=== PATIENT | male | born 1995 | race Caucasian/White ===

== ENCOUNTER 2018-12-09 08:34 | Day surgery (SDC) | payer OTHER, SELFPAY ==
[2018-12-09] MEDS ORDERED: Piperacillin/Tazobactam 3.375 GM VIAL ONE (09:12)
[2018-12-09] MEDS ORDERED: Fentanyl 100 MCG/2 ML VIAL ONE ×2 (09:22→10:18)
[2018-12-09] MEDS ORDERED: Meperidine HCl/PF 25 MG/ML VIAL ONE (09:22)
[2018-12-09] MEDS ORDERED: Famotidine/PF 20 mg/2ml Vial ONE (09:22)
[2018-12-09] MEDS ORDERED: Sodium Chloride 0.9% 100 ML ONE (10:20)
--- NOTE | 2018-12-09 10:47 | HP ---
CHIEF COMPLAINT: Right lower quadrant pain. HISTORY OF PRESENT ILLNESS: This is a 23-year-old male with a history of pain in his right lower quadrant since late last night, seen in the [facility], where he has been found to have acute appendicitis. PAST MEDICAL HISTORY: GERD. PAST SURGICAL HISTORY: Negative. MEDICATIONS: Medicines taken daily, Protonix. ALLERGIES: NO KNOWN DRUG ALLERGIES. SOCIAL HISTORY: No smoking, alcohol, or other drugs. REVIEW OF SYSTEMS: Ten-system review of systems otherwise negative unless described above. PHYSICAL EXAMINATION: HEENT: Sclerae anicteric. Oropharynx clear. NECK: No lymphadenopathy. CHEST: Clear. HEART: Regular rate and rhythm. ABDOMEN: Soft, tender right lower quadrant with localized guarding. No rebound. No abdominal hernias. EXTREMITIES: No ischemia or edema to extremities. IMAGING DATA: CT scan shows acute appendicitis. ASSESSMENT: Acute appendicitis. PLAN: Laparoscopic appendectomy. Risks, benefits, and alternatives were discussed. He gives consent. We will do this today. Job ID: [id number]
--- NOTE | 2018-12-09 10:51 | OP ---
DATE OF PROCEDURE: 12/09/2018 PREOPERATIVE DIAGNOSIS: Acute appendicitis. POSTOPERATIVE DIAGNOSIS: Acute appendicitis. PROCEDURE PERFORMED: Laparoscopic appendectomy. ANESTHESIA: General. ESTIMATED BLOOD LOSS: Minimal. COMPLICATIONS: None. SPECIMEN: Appendix. FINDINGS: Appendicitis. DESCRIPTION OF PROCEDURE: The patient was taken to the operating room and laid supine on the operating room table. After general anesthetic was obtained, a Suazo was placed. The abdomen was shaved, prepped, and draped in a sterile fashion. A curved incision was made below the umbilicus. Cautery was used to dissect down to and score the fascia. Abdominal cavity was entered bluntly with a Carmen clamp. Holding stitch of PDS was placed on each side of the fascia. Chase trocar was placed. High-flow pneumoperitoneum was obtained. A suprapubic femoral port and right lower quadrant femoral port were placed under direct visualization. The cecum was rolled over to reveal acute appendicitis. A window was made at the base of appendix and mesoappendix. Laparoscopic stapler was fired across the base of the appendix. A vascular reload was fired across the mesoappendix. The appendix was placed in an EndoCatch bag and brought out through the Morales. All port sites were infiltrated using local anesthetic. All ports were removed under camera visualization and pneumoperitoneum was let down. PDS was used to close the fascial defect below the umbilicus. All incisions were irrigated and closed using 4-0 Monocryl and Dermabond. The patient was sent to Recovery in stable condition. All instrument counts, needle counts, and lap counts were correct. Job ID: [id number]
[2018-12-09] MEDS ORDERED: PROPOFOL 200 MG/20 ML VIAL ONE (13:58)
[2018-12-09] MEDS ORDERED: Ondansetron PF 4 MG/2 ML Vial ONE (13:58)
[2018-12-09] MEDS ORDERED: Glycopyrrolate 0.2 MG/ML 5 ML SYRINGE ONE (13:58)
[2018-12-09] MEDS ORDERED: Succinylcholine Chloride 20 MG/ML 10 ml SYRINGE FS ONE (13:58)
[2018-12-09] MEDS ORDERED: Rocuronium Bromide 10 MG/ML (10ML VIAL) ONE (13:58)
[2018-12-09] MEDS ORDERED: Ketorolac Tromethamine 30 MG/ML VIAL ONE (13:58)
[2018-12-09] MEDS ORDERED: Dexamethasone 20 MG/5 ML VIAL ONE (13:58)
[2018-12-09] MEDS ORDERED: Lidocaine 1% PF 5 ML VIAL ONE (13:58)
== END 2018-12-09 12:00 | disposition home or self-care (01) ==
LOC: SDC/OP 08:34
PROVIDERS: ATTEND Surgery
PROC: 0DTJ4ZZ Resection of Appendix, Percutaneous Endoscopic Approach (ICD-10-PCS; principal; 2018-12-09)
DX: K35.33 Acute appendicitis with perforation, localized peritonitis, and gangrene, with abscess (principal); K21.9 Gastro-esophageal reflux disease without esophagitis
CPT/HCPCS: 88304; J0131; J1100; J1885; J2001; J2175; J2405; J2543; J2704; J3010; J7050; S0028

== ENCOUNTER 2018-12-15 18:07 | Emergency (ER) | payer OTHER ==
[2018-12-15 18:38] LABS: #Basophils 0.1 thou/uL (0.0-0.2); #Lymphocytes 1.3 thou/uL (1.20-3.40); #Monocytes 1.3 thou/uL (0.11-0.59); %Basophils 0.7 % (0.0-1.0); %Eosinophils 0.3 % (0.0-10.0); %Lymphocytes 9.1 % (21.0-51.0); %Monocytes 8.5 % (0.0-10.0); %Neutrophils 81.4 % (42.0-75.0); Hemoglobin 13.9 g/dL (14.0-18.0); Mean Corpuscular HGB CONC 33.2 g/dL (32.0-36.0); Mean Corpuscular Hemoglobin 29.2 pg (27.0-31.0); Mean Corpuscular Volume 88.1 fL (78.0-98.0); Mean Platelet Volume 9.7 fL (7.4-10.4); Platelet Count 211 thou/uL (130-400); Red Blood Cell (RBC) Count 4.74 mill/uL (4.70-6.10); White Blood Cell (WBC) Count 14.7 thou/uL (4.8-10.8)
[2018-12-15 18:55] LABS: ALT (SGPT) 208 U/L (8-55); AST (SGOT) 73 U/L (5-34); Albumin 4.3 g/dL (3.5-5.0); Alkaline Phosphatase 175 U/L (40-150); Anion Gap 15 mmol/L (10-20); BUN (Urea Nitrogen) 7 mg/dL (8.9-20.6); Bilirubin, Total 0.5 mg/dL (0.2-1.2); Calc. Creatinine Clearance 0 mL/min (70-130); Calcium 9.2 mg/dL (7.8-10.44); Carbon Dioxide 28 mmol/L (22-29); Chloride 101 mmol/L (98-107); Estimated GFR-MDRD Greater than 90; Globulin 3.7 g/dL (2.4-3.5); Glucose 94 mg/dL (70-105); Lipase 73 U/L (8-78); Potassium 3.4 mmol/L (3.5-5.1); Sodium 141 mmol/L (136-145)
--- NOTE | 2018-12-15 21:09 | CT ---
ABDOMEN CT WITH CONTRAST PELVIC CT WITH CONTRAST 12/15/18 HISTORY: Recent appendectomy. Fever. Evaluate for abscess. COMPARISON: None. FINDINGS: ABDOMEN CT: Lung bases are clear. Heart size is normal. No pericardial effusion. The descending thoracic aorta an d abdominal aorta have a normal caliber. No periaortic fat stranding. Portal vein is patent. Contracted gallbladder, likely due to nonfasting state. Liver, spleen, pancreas and adrenal glands have appropriate attenuation enhancement. No gastrohepatic, retrocrural or periportal lymphadenopathy. Symmetric enhancement of the kidneys. Mi nimal fullness of the right intrarenal collecting system. Bilateral extrarenal pelvises are noted. Bi laterally, no evidence of high grade obstructive uropathy. Decreased intra-abdominal fat limits evaluation for inflammatory change. Trace amount of fluid in the right pericolic gutter. No mesenteric mass, lymphadenopathy, or significant free air. Gastric mucosa, duodenum and multiple normal caliber small bowel loops are noted. Ileocecal junction is normal. there is fecal material in a nondistended, nondilated colon. There is a linear hyperdensit y emanating from the cecal apex compatible with suture secondary to previous appendectomy. There is n o evidence of an abscess. There is slightly prominent lymph nodes in the right lower quadrant which a re presumed to be reactive. There is a small air fluid level in the subcutaneous fat at the level of the umbilicus, measuring 0.9 cm. Postoperative change is favored. CT PELVIS: Small amount of simple fluid in the pelvis with attenuation coefficient of 6 Hounsfield units. No pel tristin mass, lymphadenopathy or free air. Urinary bladder is unremarkable. No lytic or blastic lesions in the osseous structures. IMPRESSION: 1. Findings compatible with recent appendectomy. No evidence of abscess. 2. Reactive mildly enlarged lymph nodes in the right lower quadrant mesentery. 3. Small amount of simple fluid in the pelvis, likely due to recent bout of appendicitis. Results of the study discussed with Dr. Naqvi on 12/15/18 at 8:41 p.m. Code CR POS: PPP
== END 2018-12-15 21:08 | disposition home or self-care (01) ==
LOC: SCSER 18:07
DX: R11.2 Nausea with vomiting, unspecified (principal); R19.7 Diarrhea, unspecified; K21.9 Gastro-esophageal reflux disease without esophagitis; Z79.899 Other long term (current) drug therapy
CPT/HCPCS: 74177; 80053; 83605; 83690; 85025; 85379

== ENCOUNTER 2018-12-20 13:08 | Inpatient (IN) | payer OTHER ==
[~2018-12-20 13:08] MED LIST: Heparin 1,000 UNITS/ML VIAL ONE; Iopamidol 370 76% 100 ML VIAL ONE
[2018-12-20 13:49] LABS: Hemoglobin 12.9 g/dL (14.0-18.0); Mean Corpuscular HGB CONC 32.8 g/dL (32.0-36.0); Mean Corpuscular Hemoglobin 29.5 pg (27.0-31.0); Mean Corpuscular Volume 90.1 fL (78.0-98.0); Mean Platelet Volume 8.7 fL (7.4-10.4); Platelet Count 259 thou/uL (130-400); RBC Distribution Width 12.2 % (11.5-14.5); Red Blood Cell (RBC) Count 4.38 mill/uL (4.70-6.10); White Blood Cell (WBC) Count 24.1 thou/uL (4.8-10.8)
[2018-12-20 13:58] LABS: MONO NEGATIVE CONTROL ZONE White (Negative) (White); MONO POSITIVE CONTROL Pink Line (Positive) (PINK/RED); Mononucleosis NEGATIVE (NEGATIVE)
[2018-12-20 14:04] LABS: ALT (SGPT) 73 U/L (8-55); AST (SGOT) 25 U/L (5-34); Albumin 4.1 g/dL (3.5-5.0); Alkaline Phosphatase 138 U/L (40-150); Anion Gap 16 mmol/L (10-20); BUN (Urea Nitrogen) 12 mg/dL (8.9-20.6); Bilirubin, Total 0.9 mg/dL (0.2-1.2); CK (CPK) 23 U/L (30-200); Calc. Creatinine Clearance 0 mL/min (70-130); Calcium 9.7 mg/dL (7.8-10.44); Carbon Dioxide 27 mmol/L (22-29); Chloride 99 mmol/L (98-107); Estimated GFR-MDRD Greater than 90; Globulin 4.4 g/dL (2.4-3.5); Glucose 112 mg/dL (70-105); Lipase 28 U/L (8-78); Potassium 4.1 mmol/L (3.5-5.1); Protein, Total 8.5 g/dL (6.0-8.3); Sodium 138 mmol/L (136-145)
[2018-12-20 14:08] LABS: Band 1 % (5-11); Lymphocytes 3 % (21-51); MDiff Complete? YES; Monocytes 5 % (0-10); Neutrophil 90 % (42-75); Platelet Morphology Comment Appears Adequate; RBC Morphology Normal
[2018-12-20] MEDS ORDERED: Ibuprofen 800 MG TAB ONE (15:26)
[2018-12-20] MEDS ORDERED: Meropenem 1 GM VIAL ONE (15:28)
--- NOTE | 2018-12-20 15:28 | CT ---
CT ANGIO OF CHEST PERFORMED WITH INTRAVENOUS CONTRAST ENHANCEMENT WITH 3D RECONSTRUCTIONS: HISTORY: Shortness of breath. Recent appendectomy. FINDINGS: The lungs are clear of any infiltrative process. No signs of any pleural effusions. No evidence of mediastinal, hilar, or axillary adenopathy. Thoracic aorta is normal in caliber. There is fairly good pulmonary artery opacification. There is no CT evidence for a pulmonary embolus. Within the liver there are some hyperenhancing wedge-shaped peripheral areas in the posterior portion of the right lobe of the liver and near the junction of the right and left lobes near the dome of th e liver. There are some hypodense more linear areas within this. These changes are most suggestive of MARY (transient hepatic attenuation difference)-type lesions. It is difficult to assess the ludivina l venous structures on this arterial phase examination, but this would imply that there is small lian pheral emboli within the portal venous phase, possibly a thrombophlebitis given patient's history of a recent appendectomy. IMPRESSION: 1. No CT evidence for pulmonary embolus. 2. Transient hepatic attenuation difference-type lesions of the liver as discussed above. Findings discussed with Dr. Ashley. CODE CR POS: [facility]
[2018-12-20] MEDS ORDERED: Sodium Chloride 0.9% 100 ML ONE ×2 (15:29→21:21)
[2018-12-20 15:39] LABS: Bilirubin Negative (Negative); Blood, Urine Negative (Negative); Clarity Clear (Clear); Glucose, Urine (Dipstick) Negative (Negative); Leukocyte Negative (Negative); Nitrite Negative (Negative); Protein, Urine (Dipstick) Trace mg/dL (Neg-Trace); Urobilinogen 0.2 mg/dL (0.2-1.0)
[2018-12-20] MEDS ORDERED: Ondansetron PF 4 MG/2 ML Vial ONE (16:11)
[2018-12-20] MEDS ORDERED: Acetaminophen 500 MG TAB ONE (16:40)
[2018-12-20] MEDS ORDERED: Vancomycin HCl 1 GM in Premix Bag 1 BAG IVPB SCH (21:00)
[2018-12-20] MEDS ORDERED: Vancomycin HCl 1 GM in Sodium Chloride 0.9% 250 ML 250 ML IVPB SCH (21:00)
[2018-12-20] MEDS ORDERED: Acetaminophen 325 MG TAB ONE (21:20)
[2018-12-20] MEDS: Sodium Chloride 0.9% 1,000 ML IV SCH (22:12)
[2018-12-20] MEDS ORDERED: HYDROcodone/Acetaminophen 5/325 mg Tablet PO PRN (22:13)
[2018-12-20] MEDS ORDERED: Ondansetron PF 4 MG/2 ML Vial IVP PRN (22:13)
[2018-12-20] MEDS ORDERED: Ondansetron ODT 4 MG TAB SL PRN (22:13)
--- NOTE | 2018-12-20 22:21 | PDOC.GSPN ---
Surgery Progress Note: Subj - Subjective Narrative: Patient s/p lap appy week and a half post op had fever last Tuesday and CT abdomen which showed no abscess. He has progressively been feeling worse in last few days with body aches, fever and chills. Pain is in his right upper quadrant. No diarrhea or constipation. CT shows MARY changes on arterial phase for r/o PE Surgery Progress Note: Obj - Physical Exam General: no distress Cardiovascular: regular rate and rhythm Respiratory: clear to auscultation Abdomen: soft, nondistended, tender (only mild tenderness mostly at the umbilical incision) Surgery Progress Note: Results - Labs Result Diagrams: 12/20/18 13:36 12/20/18 13:36 Lab results: Laboratory Results - last 24 hr 12/20/18 12/20/18 12/20/18 13:36 13:36 13:36 WBC 24.1 H RBC 4.38 L Hgb 12.9 L Hct 39.4 L MCV 90.1 MCH 29.5 MCHC 32.8 RDW 12.2 Plt Count 259 MPV 8.7 Neutrophils % (Manual) 90 H Band Neuts % (Manual) 1 L Lymphocytes % (Manual) 3 L Monocytes % (Manual) 5 Basophils % (Manual) 1 Neutrophils # Not Reportable Lymphocytes # Not Reportable Plt Morphology Comment Appears Adequate RBC Morph Comment Normal Sodium 138 Potassium 4.1 Chloride 99 Carbon Dioxide 27 Anion Gap 16 BUN 12 Creatinine 0.89 Estimated GFR (MDRD) Greater than 90 Glucose 112 H Lactic Acid Calcium 9.7 Total Bilirubin 0.9 AST 25 ALT 73 H Alkaline Phosphatase 138 Creatine Kinase 23 L Serum Total Protein 8.5 H Albumin 4.1 Globulin 4.4 H Albumin/Globulin Ratio 0.9 L Lipase 28 Urine Color Urine Clarity Urine pH Ur Specific [place] Urine Protein Urine Glucose (UA) Urine Ketones Urine Blood Urine Nitrite Urine Bilirubin Urine Urobilinogen Ur Leukocyte Esterase Monoscreen NEGATIVE 12/20/18 12/20/18 13:36 15:15 WBC RBC Hgb Hct MCV MCH MCHC RDW Plt Count MPV Neutrophils % (Manual) Band Neuts % (Manual) Lymphocytes % (Manual) Monocytes % (Manual) Basophils % (Manual) Neutrophils # Lymphocytes # Plt Morphology Comment RBC Morph Comment Sodium Potassium Chloride Carbon Dioxide Anion Gap BUN Creatinine Estimated GFR (MDRD) Glucose Lactic Acid 0.8 Calcium Total Bilirubin AST ALT Alkaline Phosphatase Creatine Kinase Serum Total Protein Albumin Globulin Albumin/Globulin Ratio Lipase Urine Color Yellow Urine Clarity Clear Urine pH 7.0 Ur Specific [place] 1.010 Urine Protein Trace Urine Glucose (UA) Negative Urine Ketones Trace H Urine Blood Negative Urine Nitrite Negative Urine Bilirubin Negative Urine Urobilinogen 0.2 Ur Leukocyte Esterase Negative Monoscreen Surgery Progress Note: A/P - Problem (1) Fever and chills Current Visit: Yes Code(s): R50.9 - FEVER, UNSPECIFIED Status: Acute (2) Hx of appendectomy Current Visit: Yes Code(s): Z90.49 - ACQUIRED ABSENCE OF OTHER SPECIFIED PARTS OF DIGESTIVE TRACT Status: Acute - Plan Plan: Admit for IV antibiotics/supportive care -CT shows strange MARY changes could be portal venous embolic. Discussed with Dr. Pepper. This is usually secondary to other source of infection -Negative CT of the abdomen Tuesday but will repeat in am to rule out abscess, IV hydration overnight due to need for more contrast -IV antibiotics -Appreciate Dr. Cho assistance
[2018-12-20] MEDS: Piperacillin/Tazobactam 4.5 GM in Sodium Chloride 0.9% 100 ML IVPB SCH (22:38)
[2018-12-20] MEDS ORDERED: VANCOMYCIN IVPB PRN (23:03)
[2018-12-20 23:27] VITALS: BMI 21.9
[2018-12-20] MEDS: Ibuprofen 600 MG TAB PO PRN (23:49)
[2018-12-21] MEDS ORDERED: Acetaminophen 1,000 MG in Premix Bag 1 BAG IVPB SCH (00:45)
--- NOTE | 2018-12-21 01:28 | HP ---
HISTORY OF PRESENT ILLNESS: The patient is a 23-year-old white male who was recently in [facility] for appendectomy performed by Dr. Lind approximately 10 days ago. The patient since then has noted to have somewhat up and down postoperative course of not feeling well. He was most recently seen changes in the [facility] ER on December 15. A CT scan of his abdomen was performed. At that time, he is complaining of not feeling well and had possibly some fever. A CT scan of his abdomen at that time was remarkable only for mesenteric lymphadenitis. No evidence of any fluid collection, otherwise, noted. The patient noted he has since his surgeries continued to have up and down days of not feeling well, possibly socially fever. He was seen again by Dr. Lind who sent him to my office today. At my interview at his office, he is complaining of generalized malaise and lethargy. He also stated that he experienced some difficulty achieving a full jainism, felt like he had some pain. He did not have any exquisite shortness of breath. He did complain of bilateral leg pain. No nausea, vomiting, or diarrhea. He still noted some fever. No dysuria or hematuria is otherwise noted. He has not noted any productive coughing. While in my office, he states actually felt a little bit better. Nonetheless, he still complain of evidence of not being to get a full breath. After discussion with the patient, it was felt it would be more araya to bring him to the emergency room, so we will get more emergent lab as well as CT angiography, which he has not had. He was evaluated in the emergency room and was found to have elevated white count of over 24,000. Electrolyte panel was, otherwise, normal. A CT angio of the chest did reveal a hypodense linear areas near the periphery of the liver in the junction of the right and left lobes near the dome of the liver, which was compatible with transient hepatic attenuation differences, whether this represented some type of embolic process was not able to be ascertained. Nonetheless, there was no evidence of pulmonary embolism and the lesions noted as above in the liver. No evidence of any other findings otherwise noted. He did develop a fever here in the ER of 103. He was given IV antibiotics in the hospital as well as some IV fluids. He states he has felt much better since then. It is noted that his lactic acid is, otherwise, negative. He notes that since the surgery, he has felt generalized malaise as above. Prior to this, he was fairly normal. 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 He has had no prior surgical history otherwise. ALLERGIES: HE HAS NO KNOWN ALLERGIES. CURRENT MEDICATIONS: None. PAST MEDICAL HISTORY: Significant for the above findings, has no previous surgery. SOCIAL AND PERSONAL HISTORY: He is a student at [employer] . He does admit to using some vaping solutions, but otherwise does not smoke. Drinks alcohol socially. PHYSICAL EXAMINATION: VITAL SIGNS: Blood pressure is 132/84, temperature 98.6, respirations 16, O2 sats 97% on room air. GENERAL: He appears to be alert, active, in no acute distress at this time. HEENT: Sclerae and conjunctivae clear. NECK: Supple. Full range of motion. No masses. LUNGS: Bilateral breath sounds. HEART: Reveals a regular rate and rhythm. No murmurs, gallops, or rubs. ABDOMEN: Slightly tender, but there is no rebound or guarding otherwise noted. Previous wounds are noted to be healing well. EXTREMITIES: No evidence of any clubbing, edema, or cyanosis. He complains of calf tenderness, but there is no sign of any obvious Homans sign. No evidence of any palpable venous cords otherwise noted. NEUROLOGICAL: Alert and oriented x3. LABORATORY DATA: White blood count 24,000, hemoglobin 12.9, hematocrit 39.4, 90 neutrophils, 1 band, 3 lymphocytes. Lipase is normal. CPK is 23. Sodium 138, potassium 4.1, chloride 99, CO2 of 27, BUN 12, creatinine 0.89, glucose 112, mildly elevated SGPT. Urinalysis is, otherwise, clear. Lactic acid is 0.8. IMPRESSION: This is a 23-year-old male, appears to be having some form of possible sepsis versus an embolic phenomenon of unknown etiology. He is status post appendectomy. PLAN: I have discussed the findings with the patient, although he does have a present with unusual diagnosis, the treatment plan thus far to be treat him a septic patient. We will get him admitted to ICU for closer observation. Place him on Zosyn and IV vancomycin. We will consult Dr. Love for further recommendations as far as treatment and observation. Dr. Lind has been notified. He will see the patient at his convenience. The patient's family is on the way. We will discuss further findings with the patient's family as indicated. Job ID: [id number]
[2018-12-21] MEDS: Vancomycin HCl 1.25 GM in Sodium Chloride 0.9% 250 ML 250 ML IVPB SCH ×2 (04:21→11:35)
[2018-12-21 05:37] LABS: Hemoglobin 11.7 g/dL (14.0-18.0); Hypochromia SLIGHT = 6-15 cells (100X) (0-5/hpf); Lymphocytes 9 % (21-51); MDiff Complete? YES; Mean Corpuscular HGB CONC 33.1 g/dL (32.0-36.0); Mean Corpuscular Hemoglobin 30.8 pg (27.0-31.0); Mean Corpuscular Volume 92.9 fL (78.0-98.0); Mean Platelet Volume 8.5 fL (7.4-10.4); Monocytes 4 % (0-10); Neutrophil 87 % (42-75); Platelet Count 260 thou/uL (130-400); Platelet Morphology Comment Appears Adequate; RBC Distribution Width 11.9 % (11.5-14.5); Red Blood Cell (RBC) Count 3.81 mill/uL (4.70-6.10); White Blood Cell (WBC) Count 16.2 thou/uL (4.8-10.8)
[2018-12-21 06:01] LABS: ALT (SGPT) 56 U/L (8-55); AST (SGOT) 28 U/L (5-34); Albumin 3.2 g/dL (3.5-5.0); Alkaline Phosphatase 137 U/L (40-150); Anion Gap 12 mmol/L (10-20); BUN (Urea Nitrogen) 11 mg/dL (8.9-20.6); Bilirubin, Total 1.1 mg/dL (0.2-1.2); Calc. Creatinine Clearance 144 mL/min (70-130); Calcium 9.2 mg/dL (7.8-10.44); Carbon Dioxide 25 mmol/L (22-29); Chloride 103 mmol/L (98-107); Estimated GFR-MDRD Greater than 90; Globulin 3.8 g/dL (2.4-3.5); Glucose 100 mg/dL (70-105); Potassium 4.4 mmol/L (3.5-5.1); Sodium 136 mmol/L (136-145)
[2018-12-21] MEDS: HYDROcodone/Acetaminophen 5/325 mg Tablet PO PRN ×3 (06:01→19:45)
[2018-12-21] MEDS: Piperacillin/Tazobactam 4.5 GM in Sodium Chloride 0.9% 100 ML IVPB SCH ×3 (06:01→20:58)
[2018-12-21] MEDS: Sodium Chloride 0.9% 1,000 ML IV SCH ×3 (07:15→20:19)
--- NOTE | 2018-12-21 08:05 | PRG ---
DATE OF SERVICE: 12/21/2018 SUBJECTIVE: Mr. Doan is feeling somewhat better. He is placed in IMCU. He had a T-max last night of 101.1. He complained of some headache, which was treated with various doses of Advil and Tylenol. He states he is feeling better. He is undergoing prep for CT scan now. OBJECTIVE: VITAL SIGNS: Otherwise, temperature 98.5, O2 sat is 97%. GENERAL: He is alert, active, in no distress. He appears to be much more ease and relaxed and comfortable. LUNGS: Clear. HEART: Reveals no murmur. ABDOMEN: There is some abdominal tenderness noted to deep palpation. LABORATORY DATA: His hemoglobin is 11.7, hematocrit 35.4, and white blood count 16.2. Sodium 136, potassium 4.4, chloride 103, CO2 of 25, BUN 11, and creatinine 0.8. Liver function tests have improved. IMPRESSION: This is a 23-year-old who particularly has some form of sepsis with transhepatic, potentially an attenuation deficit of unknown etiology or significance. PLAN: He will undergo another CAT scan today of the abdomen as well as venous Doppler ultrasound. Continue current antibiotic regimen. He will be seen and evaluated by the workgroup leader group, Dr. Love as well as continued follow up with Surgery. I have not called GI consult at this point. I will await for further information regarding these findings as noted above to assimilate and discuss with his family at that time. Job ID: [id number]
[2018-12-21] MEDS ORDERED: ISOVUE-370 76%-LOCM 1 ML ONE (10:08)
--- NOTE | 2018-12-21 12:13 | ULT ---
DOPPLER VENOUS ULTRASOUND OF BOTH LOWER EXTREMITIES: Date: 12/21/18 INDICATION: History of bilateral leg pain. TECHNIQUE: Richardson scale, color Doppler, and vascular duplex with spectral analysis was performed of the deep venou s structures of the bilateral lower extremities. The common femoral vein, superficial femoral vein, proximal greater saphenous vein, proximal greater profunda vein, popliteal, and posterior tibial vein s were assessed. There are additional Richardson scale color Doppler images of the right inguinal region. FINDINGS: There is a complex, mixed fluid and soft tissue echogenicity focus within the right inguinal region m easuring up to 4.8 cm, which may reflect an inguinal hematoma. Alternatively, it could reflect an ing uinal hernia; however, no obvious inguinal hernia was seen within the right lower quadrant on the CT evaluation dated 12/15/18. Appropriate compression, flow, and augmentation was seen within the deep v enous structures of both lower extremities. IMPRESSION: 1. Complex fluid collection seen within the soft tissues of the right inguinal region may reflect a hematoma or possibly a small abscess. Recommend correlation with patient's surgical history or proced ural history. CT evaluation may be helpful for improved characterization. 2. No evidence of deep venous thrombosis within either lower extremity. POS: [facility]
[2018-12-21] MEDS ORDERED: Enoxaparin Sodium 80 MG/0.8 ML SYRINGE SC SCH (15:15)
[2018-12-21] MEDS: Acetaminophen 325 MG TAB PO PRN (15:30)
[2018-12-21 15:37] LABS: INR-International Normal Ratio 1.2; PTT 41.6 SEC (22.9-36.1); Prothrombin Time 15.3 SEC (12.0-14.7)
[2018-12-21 15:38] LABS: D-Dimer Test 2.75 *mcg/mL (0.27-0.43)
--- NOTE | 2018-12-21 15:49 | CT ---
CT OF THE ABDOMEN AND PELVIS WITH IV CONTRAST 12/21/18 INDICATION: 23-year-old male with history of appendectomy 10-12 days ago with bilateral abdominal pain. COMPARISON: CTA of the thorax dated 12/20/[address] of the abdomen and pelvis dated 12/15/18. FINDINGS: Again seen is accentuation of the transhepatic attenuation differences involving the right hepatic lo be, particularly in segment VII and segment of the right hepatic lobe. There is partially occlusiv e thrombus seen within the distal right main portal vein with more occlusive thrombus seen within the segmental branches to a region of segment VII and the posterior aspect of segment . No additional thrombus is grossly evident within the left main portal vein or the main portal vein itself. Small amount of fluid is seen surrounding the gallbladder. There is worsening free fluid in the pelvi s. Again seen are postsurgical change of a prior appendectomy. Small fluid is seen at the umbilical p ort site. The lack of enteric contrast slightly limits imaging evaluation of the small and large bow el. No rodrick drainable fluid collection is grossly evidence. Bladder is moderately distended. The sp margret measures 12.1 cm. Adrenal glands and kidneys appear within normal limits. The pancreas is normal appearing. No acute osseous abnormality is evident. Small ossicles are seen involving the acetabula bilaterally. IMPRESSION: 1. Findings of right portal vein thrombosis. There is a partially occlusive thrombus seen within the distal right main portal vein. There is more occlusive thrombi seen within segmental branches of segment and segment VII. This is suspected to be related to septic thromboemboli from the patient 's previous appendectomy. 2. Mild free fluid within the right hemicolon which is nonspecific and can be seen with mild patric rrheal states. No definite drainable fluid collection is evident. 3. Small abscess seen around the port site of the umbilical region measuring 2.6 cm. 4. Worsening mild free fluid in the pelvis. 5. Findings were discussed with Dr. Lind at 2:45 p.m. on 12/13/18. Code CR POS: [facility]
[2018-12-21 19:24] LABS: Vancomycin, Trough 11.1 ug/mL
[2018-12-21] MEDS: Vancomycin HCl 1.5 GM in Sodium Chloride 0.9% 250 ML 300 ML IVPB SCH (20:17)
--- NOTE | 2018-12-21 22:23 | CON ---
DATE OF CONSULTATION: 12/21/2018 HISTORY OF PRESENT ILLNESS: Mr. Doan is a very pleasant 23-year-old male. He is an extremely polite young man. Apparently, he was having symptoms of appendicitis several weeks back and underwent outpatient appendectomy. Since then, says he has been feeling good some days and not good other days. One day, he went in to see Dr. Lind he felt better than the previous two days. He had a followup CT of his abdomen. It did not show any abscess, but did show some small lymph nodes. There is no collection of pus or hematoma identified. He has continued to not feel well and he has also had some anterior costochondral discomfort, but will admit that he was having this before he had his appendicitis. Because of these feelings of not being able to take a deep breath, he was referred for a CT pulmonary angiogram yesterday. He had abnormalities in his liver. Dr. Cho and I discussed this. I was concerned that these may be septic emboli, so he was subsequently admitted to the hospital. PAST MEDICAL HISTORY: He has never had any operations. He has been healthy up into this point. SOCIAL HISTORY: Remarkable for rarely drinking, not being a tobacco user. FAMILY HISTORY: Non contributory. REVIEW OF SYSTEMS: 10 point review of systems completed. PHYSICAL EXAMINATION: VITAL SIGNS: Blood pressure is 133/77, temperature is 99.2, heart rate 79, respiratory rate is in the teens. GENERAL: He has absolutely no distress. HEENT: Pupils are equal. Sclerae are anicteric. NECK: Supple. LUNGS: Clear. HEART: Regular rhythm. No S3. No murmur. ABDOMEN: Soft and nontender. EXTREMITIES: Without clubbing, cyanosis, or edema. LABORATORY DATA: White count is 24.1 yesterday. He only had 1% bands on his peripheral smear yesterday. Electrolytes were normal. ALT was 56. ALT, alkaline phosphatase 137, AST was 28. Albumin 3.2 today, 4.1 yesterday. He underwent repeat abdomen and pelvis CT today. This shows portal vein thrombus on the right. IMPRESSION: Portal vein thrombus ? related to his recent appendicitis. He will be anticoagulated. Gastroenterology has been consulted. We will go ahead and do an echocardiogram, although I doubt he will have a vegetation or any type of echocardiogram abnormalities. I will be happy to follow the other physicians who are following him. I met with his mother and answered all of his questions. This is a 70 minute consult, with greater than 50% of time spent on unit coordinating care. Job ID: [id number] ROLF
[2018-12-22] MEDS: Ibuprofen 600 MG TAB PO PRN ×3 (01:21→22:39)
--- NOTE | 2018-12-22 01:26 | CON ---
DATE OF CONSULTATION: 12/21/2018 REASON FOR CONSULT: Abnormal liver lesions on CAT scan. HISTORY OF PRESENT ILLNESS: Mr. Doan is a 23-year-old gentleman who presented to Dr. Lind on 12/09 with right lower quadrant pain. He was found to have acute appendicitis in outside ER and was sent to see Dr. Lind. He underwent an appendectomy on 12/09. His pathology showed acute appendicitis with abscess formation and possible rupture. On operative report notes, he was found to have acute appendicitis. The patient did well after surgery until about the when he came to the emergency room and he complained of fever, chills, and vomiting. A CAT scan of the abdomen was done at that time with contrast that showed trace amount of right paracolic gutter fluid with no free air, mildly reactive lymph nodes in the right lower quadrant mesentery and a white count of 14,000 as well. For time, he was on penicillin it sounds like then with ongoing problems, Dr. Lind also referred him over to Dr. Cho. Dr. Cho had sent him over to the emergency room as he did not look well yesterday. Labs showed a white count of 24,000. CAT scan of liver showed a mismatch perfusion in the hepatic artery and portal venous system. Fever 103. He had a Doppler venogram of legs today, which were normal. He had a CAT scan yesterday that showed transient hepatic attenuation differences, MARY, that was noted on the CT angio of the chest today. CT scan of the abdomen and pelvis was performed and showed a clot in the right portal venous system. He has been started on IV antibiotics, anticoagulation. Thus far, blood cultures from the are negative. PAST MEDICAL HISTORY: He had PANDA as a child after a strep infection. PAST SURGICAL HISTORY: Notable only for the appendectomy. SOCIAL HISTORY: Does not use drugs, drink, or smoke. He is a student at [employer] and [employer] and has an architecture major. ALLERGIES: NONE KNOWN. MEDICATIONS: Medications at home, none. Present medications are; 1. Tylenol. 2. [place]. 3. Lovenox 70 q.12. 4. Motrin p.r.n. 5. Zofran p.r.n. 6. Zosyn. 7. Vancomycin. FAMILY HISTORY: Negative for GI diseases, celiac, or inflammatory bowel disease. REVIEW OF SYSTEMS: Negative for rashes, myalgias, arthralgias, headache, vision changes, shortness of breath, dyspnea on exertion, dysuria, frequency, urgency, hematuria, melena, hematochezia, or hematemesis. He has had no prior GI illnesses in the recent past. LABORATORY STUDIES: White count 16.2 today, down from 24,000; hemoglobin 11.7, and platelet count 260. INR 1.2. Hypercoagulable workup pending. Common metabolic profile normal except for albumin of 3.2, total protein of 7. AST and ALT are 28 and 56. Bilirubin is 1.1. Homocysteine 6.41. [place] screen negative. Radiology report from this afternoon shows the clots in the right portal vein, partially occlusive thrombus in the distal right main portal vein, felt to read as septic thromboemboli from the patient's previous appendectomy, mild free fluid within the right hemicolon, no drainable fluid collections and a small abscess seen around the port site of the umbilical region measuring 2.6 cm per the radiologist, worsening mild free fluid in the pelvis. ASSESSMENT: Septic thrombophlebitis of the main portal vein and right portal venous system likely retrospect causes symptoms that were not visualized on previous CAT scan from the . Management so far is inappropriate with blood cultures being obtained for starting antibiotics and full-dose anticoagulation. He will likely require 6 months of anticoagulation, he should be re-imaged in 3 months to make sure there has been resolution of the clot. If there is, in the end of the 6 months, they can be discontinued and then he would need followup imaging about 3 months after the anticoagulants were discontinued. All this is predicated on the fact that we are assuming he is going to have normal coagulation panel. As far as the antibiotics go, probably need to treat his endovascular infection prior, for 6 weeks of antibiotics. It would be reasonable to involve Dr. Bethea and determine what will regimen araya, if we can use something oral, if he needs to be on IV. With regard to the small abscess in the umbilical port, we will defer management to General Surgery. We will follow along with you during this hospitalization. Job ID: [id number]
[2018-12-22] MEDS: Vancomycin HCl 1.5 GM in Sodium Chloride 0.9% 250 ML 300 ML IVPB SCH ×3 (03:02→20:33)
[2018-12-22] MEDS: Piperacillin/Tazobactam 4.5 GM in Sodium Chloride 0.9% 100 ML IVPB SCH ×3 (06:03→22:39)
[2018-12-22] MEDS: Acetaminophen 325 MG TAB PO PRN ×3 (06:04→22:38)
[2018-12-22] MEDS: Enoxaparin Sodium 80 MG/0.8 ML SYRINGE SC SCH ×2 (09:37→20:41)
--- NOTE | 2018-12-22 09:43 | PRG ---
DATE OF SERVICE: 12/22/2018 SUBJECTIVE: Mr. Doan has no new complaints. He says he is feeling better. OBJECTIVE: VITAL SIGNS: His vital signs are stable. He had a temp max of 100, his oximetry is 100% on room air, blood pressure 134/82. There is no blood pressure reported since last night. LUNGS: Clear. HEART: Regular rhythm. ABDOMEN: Soft and nontender. LABORATORY DATA: White count 16.2, hemoglobin 11.7, platelets 260. Electrolytes are normal. IMPRESSION: Portal vein thrombus, likely a sequelae of appendicitis. He will be switch to p.o. anticoagulant tomorrow in my opinion. He will need 6 months of anticoagulation and followup CT in 3 months. Thrombosis panel is pending. Dr. Bethea has been consulted to adjust antimicrobial therapy. Job ID: [id number]
--- NOTE | 2018-12-22 10:47 | PRG ---
DATE OF SERVICE: 12/22/2018 SUBJECTIVE: Mr. Doan is feeling better. He is actually hungry today. OBJECTIVE: VITAL SIGNS: His T-max was 100, now afebrile. LUNGS: Clear. HEART: Reveals no murmur. ABDOMEN: Soft. There is still some slight tenderness noted diffusely. There is no redness or rebound or guarding. Blood cultures will be back this afternoon. Other lab that is pending is his coagulation profile. It is noted on his abdomen and pelvis CT, he did have a thrombosis of the right portal vein, which probably explains some of his bad lesions. IMPRESSION: Probable postoperative infection associated with portal vein thrombosis. PLAN: 1. He was begun on Lovenox. He will be switched to oral anticoagulants. 2. Continue current IV antibiotics. 3. We will advance diet. 4. He may be transferred to the medical floor or postop floor. Job ID: [id number]
--- NOTE | 2018-12-22 13:40 | PRG ---
DATE OF SERVICE: 12/22/2018 SUBJECTIVE: Mr. Doan feels much better. He had a regular breakfast this morning without nausea or vomiting. He has no significant abdominal pain. OBJECTIVE: VITAL SIGNS: He is afebrile x24 hours. His vital signs are stable. ABDOMEN: Soft and nondistended. He has a small lump at his umbilical incision that does not look infected. The other incisions are healing well. No abdominal pain on exam. ASSESSMENT: Portal vein thrombosis, status post laparoscopic appendectomy. PLAN: Plans are for full anticoagulation for 6 months plus or minus IV antibiotics. Dr. Bethea to decide. Dr. Estevez following for me this weekend. If he goes home this weekend, I have to discuss with him and his mother to come back and see me after spring. Job ID: [id number]
--- NOTE | 2018-12-22 15:05 | PQF ---
DATE: 12-22-18 ATTN: DR. ALTAGRACIA GALVAN Please exercise your independent, professional judgment in responding to the clarification form. Clinical indicators are provided on the bottom of this form for your review Please check appropriate box(s) to clarify if the following diagnosis has been ruled in or ruled out: SEPSIS [ x ] Ruled in diagnosis [ x ] Continue to treat [ ] Resolved [ ] Ruled out diagnosis [ ] Other diagnosis [ ] Unable to determine In addition, please specify: Present on Admission (POA): [ ] Yes [ ] No [ ] Unable to determine For continuity of documentation, please document condition throughout progress notes and discharge summary. Thank You. CLINICAL INDICATORS - SIGNS / SYMPTOMS / LABS ER DX: SEPSIS, RECENT APPY, MARY LIVER LESIONS H&P: HE DID DEVELOP HERE IN THE ER OF 103. THIS IS A 23 YR OLD MALE, APPEARS TO BE HAVING SOME FORM OF POSSIBLE SEPSIS VS AND EMBOLIC PHENOMENON OF UNK ETIOLOGY. PN DR. ALTAGRACIA GALVAN 12-22-18: PROBABLE POSTOPERATIVE INFECTION ASSOCIATED WITH PORTABLE VEIN THROMBOSIS. WBC: 12-20-18: 24.1 12-21-18: 16.2 TEMP: 12-21-18: 101.1, 100.4 12-22-18: 99.5, 100.0 RR: 12-21-18: 23, 30, 25, 31 RISK FACTORS: H&P: S/P APPENDECTOMY PN DR. ALTAGRACIA GALVAN 12-22-18: PROBABLE POSTOPERATIVE INFECTION ASSOCIATED WITH PORTABLE VEIN THROMBOSIS. TREATMENTS: ER: MEROPENEM, IVF X2 (This form is maintained as a part of the permanent medical record) 2014 [employer]. All Rights Reserved TIFFANY [email or web address] Office: [phone] [facility]
--- NOTE | 2018-12-22 15:10 | PRG ---
DATE OF SERVICE: 12/22/2018 SUBJECTIVE: Mr. Doan is feeling better than yesterday. He has had no fever overnight. He has a little bit of upper abdominal pain bilaterally, but in general starting to eat and feels much better than yesterday. OBJECTIVE: VITAL SIGNS: Temperature is 98.5, T-max 100 at midnight and 101 just after midnight on , pulse is 59, and blood pressure 144/80. LUNGS: Clear. ABDOMEN: Nontender. HEENT: He is nonicteric. ABDOMEN: Scaphoid. Umbilical area is without drainage or erythema. EXTREMITIES: Negative. LABORATORY DATA: White count 16,000 down from 24,000, hemoglobin 11.6, platelet count is 260. INR is 1.2. Sodium 136, potassium 4.4, BUN and creatinine are 11 and 0.86. AST is 56 down from 73, alkaline phosphatase 137, bilirubin is 28, albumin 3.2, and homocysteine 6.4. Coagulation panel is pending. Microbiology, blood cultures are pending. No growth at 48 hours thus far. ASSESSMENT: Septic thrombophlebitis of the portal vein related to recent appendicitis. RECOMMENDATIONS: Continue anticoagulation for 6 months. I think the patient is going to need ongoing antibiotics with negative blood cultures, it is questionable how much he will need. I have called Dr. Bethea, who is out today and will be available this week and take a look at him, so we will talk to him about antibiotics before discharge. I think we can switch him either today or tomorrow to oral anticoagulant. We will continue to follow along. Job ID: [id number]
[2018-12-22 19:07] LABS: Vancomycin, Trough 27.4 ug/mL
[2018-12-22] MEDS: Sodium Chloride 0.9% 1,000 ML IV SCH (20:30)
[2018-12-22] MEDS ORDERED: Vancomycin HCl 1.5 GM in Sodium Chloride 0.9% 250 ML 300 ML IVPB SCH (20:45)
[2018-12-23] MEDS: Piperacillin/Tazobactam 4.5 GM in Sodium Chloride 0.9% 100 ML IVPB SCH ×3 (05:16→22:31)
[2018-12-23] MEDS: Sodium Chloride 0.9% 1,000 ML IV SCH ×2 (05:19→11:35)
[2018-12-23 07:13] LABS: Vancomycin, Random 17.1 ug/mL (See Comment)
[2018-12-23] MEDS: Ibuprofen 600 MG TAB PO PRN ×3 (08:05→22:31)
[2018-12-23] MEDS: Acetaminophen 325 MG TAB PO PRN ×3 (08:05→21:44)
[2018-12-23] MEDS: Enoxaparin Sodium 80 MG/0.8 ML SYRINGE SC SCH (09:58)
[2018-12-23] MEDS: Vancomycin HCl 1.25 GM in Sodium Chloride 0.9% 250 ML 250 ML IVPB SCH ×2 (11:31→20:16)
[2018-12-23] MEDS ORDERED: Saccharomyces boulardii 250 MG CAP PO SCH (12:15)
--- NOTE | 2018-12-23 12:19 | PRG ---
DATE OF SERVICE: 12/23/2018 SUBJECTIVE: The patient is feeling much better. Denies fevers or chills. States that his energy is better. He has had several episodes of diarrhea, but improved from admission. Appetite is good. Tolerating full diet. OBJECTIVE: VITAL SIGNS: Temperature 98.2, T-max of 98.5, pulse of 65, respirations 16, blood pressure 129/77, and pulse oximetry is 99% on room air. GENERAL: He is awake and alert, in no acute distress. Speech is clear. HEENT: Mucosa is moist. NECK: Supple. HEART: Regular rate and rhythm with no murmurs. LUNGS: Clear bilaterally. ABDOMEN: With positive bowel sounds. Soft, nontender, and nondistended. No hepatosplenomegaly. Surgical scars are healing. No signs of redness or oozing. LABORATORY DATA: Pending. White blood cell count was 16,200 two ago. ASSESSMENT AND PLAN: 1. This is a 23-year-old gentleman, status post appendectomy, now with septic thrombophlebitis of the portal vein. Plan per Dr. Love, Dr. Lind, Dr. Kinney, and then Dr. Bethea. We will continue anticoagulation and long-term antibiotics as the patient is improving significantly. 2. Hypercoagulable state. Workup is pending. 3. Diarrhea with recent antibiotics. We will check Clostridium difficile and start Florastor. 4. Disposition hopefully home in the next day or two after Infectious Disease evaluation is done and plan is finalized. Job ID: [id number]
[2018-12-23 12:51] LABS: #Eosinphils 0.1 thou/uL (0.0-0.7); #Lymphocytes 1.7 thou/uL (1.20-3.40); #Monocytes 0.6 thou/uL (0.11-0.59); #Neutrophils 2.7 thou/uL (1.40-6.50); %Basophils 0.8 % (0.0-1.0); %Lymphocytes 33.6 % (21.0-51.0); %Monocytes 11.2 % (0.0-10.0); %Neutrophils 53.4 % (42.0-75.0); Hemoglobin 11.8 g/dL (14.0-18.0); Mean Corpuscular HGB CONC 32.9 g/dL (32.0-36.0); Mean Corpuscular Hemoglobin 30.1 pg (27.0-31.0); Mean Corpuscular Volume 91.3 fL (78.0-98.0); Mean Platelet Volume 7.7 fL (7.4-10.4); Platelet Count 371 thou/uL (130-400); Red Blood Cell (RBC) Count 3.92 mill/uL (4.70-6.10)
[2018-12-23 13:12] LABS: ALT (SGPT) 40 U/L (8-55); AST (SGOT) 19 U/L (5-34); Albumin 3.3 g/dL (3.5-5.0); Alkaline Phosphatase 109 U/L (40-150); Anion Gap 12 mmol/L (10-20); BUN (Urea Nitrogen) 9 mg/dL (8.9-20.6); Bilirubin, Total 0.3 mg/dL (0.2-1.2); Calc. Creatinine Clearance 147 mL/min (70-130); Calcium 8.9 mg/dL (7.8-10.44); Carbon Dioxide 27 mmol/L (22-29); Chloride 103 mmol/L (98-107); Estimated GFR-MDRD Greater than 90; Globulin 3.9 g/dL (2.4-3.5); Glucose 80 mg/dL (70-105); Protein, Total 7.2 g/dL (6.0-8.3); Sodium 138 mmol/L (136-145)
--- NOTE | 2018-12-23 16:40 | PRG ---
DATE OF SERVICE: 12/23/2018 SUBJECTIVE: Mr. Doan is without complaints. OBJECTIVE: VITAL SIGNS: Temperature is 98, pulse 69, blood pressure 133/79. ABDOMEN: Soft, nontender. LABORATORY DATA: White count 5, hemoglobin 11.8, platelet count 371. Liver function test now normal. ASSESSMENT: 1. Perforated appendicitis recently. 2. Septic thrombophlebitis with portal vein thrombosis and emboli to the liver. Plans are for 6 months of anticoagulation and antibiotics. RECOMMENDATIONS: 1. Consult Dr. Bethea which have done. 2. He is to be started on oral anticoagulation. I would defer to primary service to discuss this with Pulmonary at length. We are going to use when that time came. Job ID: [id number]
[2018-12-23 17:40] LABS: Cardiolipin IgA Ab 4.1 APL-U/mL (<14 Negative); Cardiolipin IgG Ab 1.7 GPL-U/mL (<10 Negative); Cardiolipin IgM Ab 3.1 MPL-U/mL (<10 Negative); EliA APS New Method **** NEW METHOD ****
[2018-12-23] MEDS: Rivaroxaban 15 MG TAB PO SCH (20:16)
[2018-12-24] MEDS: Sodium Chloride 0.9% 1,000 ML IV SCH ×3 (02:08→23:51)
[2018-12-24] MEDS: Vancomycin HCl 1.25 GM in Sodium Chloride 0.9% 250 ML 250 ML IVPB SCH ×4 (04:26→18:30)
[2018-12-24] MEDS: Piperacillin/Tazobactam 4.5 GM in Sodium Chloride 0.9% 100 ML IVPB SCH ×3 (06:56→16:06)
[2018-12-24] MEDS: Saccharomyces boulardii 250 MG CAP PO SCH (08:39)
[2018-12-24] MEDS: Rivaroxaban 15 MG TAB PO SCH ×2 (08:39→20:23)
[2018-12-24] MEDS: Ibuprofen 600 MG TAB PO PRN ×2 (08:39→21:44)
[2018-12-24] MEDS: Acetaminophen 325 MG TAB PO PRN ×3 (08:41→21:44)
--- NOTE | 2018-12-24 10:54 | PRG ---
DATE OF SERVICE: 12/24/2018 PRIMARY CARE PHYSICIAN: Dr. Xavier Cho. SUBJECTIVE: The patient is feeling some better. He was able to walk three or four times yesterday with improved energy. Appetite is okay. Tolerating his diet. He has had improved diarrhea, but continues to have some soft stool, since admission, his C diff was positive, now on contact precautions. No fevers or chills. No nausea or vomiting. OBJECTIVE: VITAL SIGNS: Temperature 97.4, pulse of 56, respirations are 20, blood pressure 124/73, and pulse ox is 100% on room air. GENERAL: He is awake and alert, in no acute distress. Speech is clear. NECK: Supple. HEENT: Mucosa is moist. HEART: Regular rate and rhythm. LUNGS: Clear. ABDOMEN: Positive bowel sounds. Some tenderness. He has tender area with redness around the umbilical trocar site, possible abscess versus seroma formation. LABORATORY DATA: CBC; white blood cell count 5000, hemoglobin and hematocrit 11.8 and 35.8, and platelets are 371. AST and ALT down to 19 and 40. C diff is positive. ASSESSMENT AND PLAN: This is a 23-year-old gentleman, status post appendectomy , now with septic thrombophlebitis of the portal vein. Appreciate consultants. 1. Hypercoagulable state, likely secondary to sepsis, with portal vein thrombosis. Workup is continuing in progress for other sources of hypercoaguability. We will continue oral anticoagulation at this time. 2. Diarrhea with recent antibiotic. C diff positive. We will continue Florastor and possible switch to oral vancomycin. 3. Sepsis with recent appendicitis with rupture and abscess. Antibiotics per Dr. Bethea. Job ID: [id number] [facility]
[2018-12-24] MEDS ORDERED: Lidocaine 1% (PF) 30 ML VIAL ONE (11:12)
[2018-12-24 11:32] LABS: Vancomycin, Trough 26.7 ug/mL
[2018-12-24] MEDS: MEROPENEM 1 GM/50 ML 1 GM in Premix Bag 1 BAG IVPB SCH ×2 (16:38→23:48)
--- NOTE | 2018-12-24 16:58 | PRG ---
DATE OF SERVICE: 12/24/2018 SUBJECTIVE: Mr. Doan is feeling better. Stools are soft but not watery. He did have a stool positive for Clostridium difficile antigen but negative toxin. Blood cultures have been negative. He is having no abdominal pain. OBJECTIVE: VITAL SIGNS: Temperature is 98, pulse 68, blood pressure 130/82. ABDOMEN: Soft and nontender. LABORATORY DATA: No labs today. ASSESSMENT: 1. Septic thrombophlebitis of the portal vein related to complicated appendicitis, markedly improved with resolution of pain, nausea, vomiting, and abnormal LFTs on anticoagulation and antibiotics. 2. Xarelto was started yesterday. 3. Loose stools. Antibiotic associated Clostridium difficile is positive antigen, negative toxin. He is on Florastor. He is not having overtly loose stool. Would not add any vancomycin this time. 4. Seroma at the umbilicus was opened today as this was becoming larger with more pressure by General Surgery. PLAN: 1. The patient will go home with six weeks of anticoagulation. Discussed bleeding precautions especially in the head with the patient. 2. Antibiotics per Dr. Bethea. It seems a PICC lines being placed. 3. Probiotics. We continue those and try to avoid the oral vancomycin at this point in time as he has rodrick diarrhea. Job ID: [id number]
[2018-12-24] MEDS ORDERED: Vancomycin HCl 1 GM in Premix Bag 1 BAG IVPB SCH (18:00)
--- NOTE | 2018-12-24 18:53 | PDOC.GSPN ---
Surgery Progress Note: Subj - Subjective Narrative: Patient with worsening redness and swelling and tenderness at the umbilicus consistent with a postoperative abscess. Skin was prepped with ChloraPrep and anesthetized with lidocaine. Wound was reopened and a moderate-sized abscess which drained. Fascia appears to be intact. The wound was packed with iodoform and dressed with gauze. Nurses were instructed to change the packing daily and teach the patient and family how to do this. Cultures were sent. Surgery Progress Note: Obj - Vital signs Vital signs: Vital Signs - Most Recent Temp Pulse Resp BP Pulse Ox 98.3 F 67 16 107/71 99 12/24/18 15:15 12/24/18 15:15 12/24/18 15:15 12/24/18 15:15 12/24/18 15:15 Surgery Progress Note: Results - Labs Result Diagrams: 12/23/18 12:26 12/23/18 12:26 Lab results: Laboratory Results - last 24 hr 12/24/18 11:02 Vancomycin Trough 26.7
--- NOTE | 2018-12-24 19:11 | CON ---
DATE OF CONSULTATION: 12/24/2018 REASON FOR CONSULTATION: Portal vein septic thrombophlebitis following appendicectomy and periumbilical abscess. HISTORY OF PRESENT ILLNESS: A 23-year-old, who has a history of GERD and now was admitted by Dr. Lind on December 09 with right lower quadrant abdominal pain , had initially been seen at [facility] and a CT scan showed acute appendicitis. The operative report was reviewed. The abdominal cavity was entered and pneumoperitoneum was established and acute appendicitis was demonstrated. The appendix was placed in an EndoCatch bag and brought out. No major issues were seen. There had been no evidence of spillage or perforation. Pathology report demonstrated acute appendicitis with abscess formation and probable rupture. There was surrounding soft tissue with abscess formation. The patient initially improved, but then started having problems, had some fever and some abdominal pain in the right upper quadrant. Initially, a CT scan was concerning for possible mesenteric lymphadenitis, but no fluid collection noted. He persisted feeling unwell with fever recurrence again and at this time, a repeat CT of the abdomen demonstrated right portal vein thrombosis, partially occlusive thrombus within the distal right main portal vein. More occlusive thrombi seen within the segmental branches of segment six and seven, possibly related to septic thromboemboli from prior appendicitis. Cultures thus far no growth. He did have some diarrhea and C. diff antigen was positive, but the toxin negative. He is currently feeling well. He denies any headaches. He is eating and passing gas. No respiratory symptoms. No back pain. Abdominal pain has improved. He is voiding without difficulty. No joint symptoms or skin disorder. Outside the area of the abdomen while on the ports had an area of inflammatory change and the patient had a limited I and D by Dr. Lind. PAST MEDICAL HISTORY: Remarkable for GERD and recent appendectomy. PAST SURGICAL HISTORY: Recent appendectomy, which was laparoscopic. ALLERGIES: NONE. MEDICATION LIST: 1. Meropenem. 2. Vancomycin, he is getting intravenous vancomycin. 3. He is on Xarelto as well for the thrombosis management. FAMILY HISTORY: Noncontributory. SOCIAL HISTORY: Never smoker. He is a student at [employer] and . PHYSICAL EXAMINATION: VITAL SIGNS: T-max 101 on arrival, he defervesce since. BP 130/82, pulse 68, respirations 16, and O2 saturation 100. SKIN: Shows the periumbilical area with limited I and D with slight erythema. Peripheral IV access. No Suazo catheter. No lymphadenopathy. HEENT: Noncontributory. LUNGS: Clear. HEART: S1 and S2. Regular rate. No S3 or S4. ABDOMEN: Soft. Mild tenderness in the periumbilical area. Bowel sounds are present. No distention or ascites. No organomegaly. No bladder distention. EXTREMITIES: No joint inflammatory activity. Pulses in lower extremities are normal. NEURO: Nonfocal including cognitive function. LABORATORY DATA: White cell count is down from 24 to 5.0, hemoglobin 11, platelets 371 with a normal differential, on arrival was 90% neutrophils. Chemistry with a creatinine 0.84, albumin 3.3, and ALT was 73 down to 49. [place] screen negative. Cardiolipin antibodies were negative. Urinalysis was normal. Imaging studies and blood cultures noted above. ASSESSMENT AND PLAN: Acute appendicitis with micro perforation and small abscess with pylephlebitis or septic thrombophlebitis of the portal vein. Usual organisms including gram-negative rods, anaerobes, and streptococci are the likely culprits here. Apparently, had I and D of the umbilical area, I am not sure that cultures were submitted from that site. Looks like they are pending. We will review those and then alter antimicrobial regimen accordingly, but plan for meropenem in the outpatient setting for 2 or 3 weeks. Follow up the imaging studies. Continue Xarelto for protracted period of time. The patient is at risk for developing liver abscesses and will fu CT abdomen to verify outcome and extend antimicrobial therapy if needed. Peripherally inserted central catheter line placement and arrange for outpatient therapy. Job ID: [id number] [facility]
[2018-12-24] MEDS ORDERED: Calcium Carbonate 500 MG ChewTAB PO PRN (20:05)
[2018-12-25 05:39] LABS: Band 2 % (5-11); Hemoglobin 11.8 g/dL (14.0-18.0); Hypochromia SLIGHT = 6-15 cells (100X) (0-5/hpf); Lymphocytes 37 % (21-51); MDiff Complete? YES; Mean Corpuscular HGB CONC 32.4 g/dL (32.0-36.0); Mean Corpuscular Hemoglobin 30.1 pg (27.0-31.0); Mean Corpuscular Volume 92.8 fL (78.0-98.0); Mean Platelet Volume 7.5 fL (7.4-10.4); Monocytes 11 % (0-10); Neutrophil 45 % (42-75); Platelet Count 355 thou/uL (130-400); Platelet Morphology Comment Appears Adequate; RBC Distribution Width 12.1 % (11.5-14.5); Reactive Lymphocytes 5 % (0-10); Red Blood Cell (RBC) Count 3.92 mill/uL (4.70-6.10); White Blood Cell (WBC) Count 5.1 thou/uL (4.8-10.8)
[2018-12-25 05:42] LABS: ALT (SGPT) 67 U/L (8-55); AST (SGOT) 49 U/L (5-34); Albumin 3.3 g/dL (3.5-5.0); Alkaline Phosphatase 92 U/L (40-150); Anion Gap 13 mmol/L (10-20); BUN (Urea Nitrogen) 9 mg/dL (8.9-20.6); Bilirubin, Total Less than 0.2 mg/dL (0.2-1.2); Calc. Creatinine Clearance 134 mL/min (70-130); Calcium 8.8 mg/dL (7.8-10.44); Carbon Dioxide 27 mmol/L (22-29); Chloride 104 mmol/L (98-107); Estimated GFR-MDRD Greater than 90; Globulin 3.8 g/dL (2.4-3.5); Glucose 86 mg/dL (70-105); Potassium 4.1 mmol/L (3.5-5.1); Protein, Total 7.1 g/dL (6.0-8.3); Sodium 140 mmol/L (136-145)
[2018-12-25] MEDS: Vancomycin HCl 1.25 GM in Sodium Chloride 0.9% 250 ML 250 ML IVPB SCH (06:12)
[2018-12-25] MEDS: Sodium Chloride 0.9% 1,000 ML IV SCH ×2 (06:18→11:01)
[2018-12-25] MEDS: Rivaroxaban 15 MG TAB PO SCH ×2 (07:14→20:02)
[2018-12-25] MEDS: Acetaminophen 325 MG TAB PO PRN ×2 (08:24→19:53)
[2018-12-25] MEDS: Saccharomyces boulardii 250 MG CAP PO SCH (08:25)
[2018-12-25] MEDS: MEROPENEM 1 GM/50 ML 1 GM in Premix Bag 1 BAG IVPB SCH ×2 (10:44→16:16)
--- NOTE | 2018-12-25 12:09 | SPC ---
ULTRASOUND AND FLUOROSCOPIC GUIDED PICC LINE PLACEMENT: HISTORY: Need for long-term IV access. COMPARISON: None. FINDINGS: The patient is brought to the specials suite. All questions were answered. Informed consent was obt ained. Timeout was performed. The patient's left arm was prepped and draped in normal sterile fashion. Using ultrasound guidance, the left basilic vein was accessed. Over a wire and through a peelaway sheath, the [address] aced. The patient tolerated the procedure well without complication. IMPRESSION: Technically successful fluoroscopic-guided PICC line placement. FLUORO TIME: 0.4 minutes, dose 1990 mGy*^cm2. POS: [facility]
--- NOTE | 2018-12-25 13:29 | PRG ---
DATE OF SERVICE: 12/25/2018 SUBJECTIVE: Mr. Doan is doing much better. He is now on Xarelto for his hepatic vein thrombosis. OBJECTIVE: VITAL SIGNS: He is afebrile. BP 120/78. P.o. intake has been good. LUNGS: Clear. HEART: Reveals no murmur. ABDOMEN: Soft. There is a wound patch in place. His umbilicus had to be reopened. IMPRESSION: 1. Hepatic vein thrombosis. 2. Sepsis, under control. PLAN: The patient can hopefully be discharged with PICC line and home health. I have discussed the potential arrangements with the patient's mother. We will try to expedite this as much as possible. Job ID: [id number]
--- NOTE | 2018-12-25 13:32 | PRG ---
DATE OF SERVICE: 12/25/2018 SUBJECTIVE: Mr. Doan is doing well. Dr. Estevez opened his umbilical incision from yesterday and drained some purulent material, it has been packed. OBJECTIVE: VITAL SIGNS: He is afebrile now. Vital signs are stable. ABDOMEN: Soft and nontender. The dressings were removed and replaced. No ongoing purulence. ASSESSMENT: Likely home today on IV antibiotics and Xarelto. PLAN: A few weeks at least of antibiotics, managed by Dr. Bethea. I told that they could have the wound packed one more time today and then he could remove the packing tomorrow and just keep the wound covered with gauze and tape. Follow up with me in 2 weeks. Job ID: [id number]
[2018-12-25] MEDS ORDERED: Diabetic Tussin 200 MG/10 ML UDCUP PO PRN (19:34)
[2018-12-26] MEDS: MEROPENEM 1 GM/50 ML 1 GM in Premix Bag 1 BAG IVPB SCH ×3 (00:30→15:11)
[2018-12-26] MEDS: Sodium Chloride 0.9% 1,000 ML IV SCH ×2 (03:58→10:28)
[2018-12-26] MEDS: Acetaminophen 325 MG TAB PO PRN (07:55)
[2018-12-26] MEDS: Rivaroxaban 15 MG TAB PO SCH (07:55)
[2018-12-26] MEDS: Saccharomyces boulardii 250 MG CAP PO SCH (07:55)
--- NOTE | 2018-12-26 10:00 | CON ---
DATE OF CONSULTATION: 12/26/2018 Mr. Doan is doing well. He is ready to go home, unfortunately could not be yesterday. OBJECTIVE: VITAL SIGNS: He is afebrile. Blood pressure 110/70. LUNGS: Clear. HEART: Reveals no murmur. ABDOMEN: Soft. Mild drainage noted from the periumbilical wound. EXTREMITIES: No clubbing, edema, or cyanosis. LABORATORY DATA: Blood cultures are negative. IMPRESSION: 1. Portal vein thrombosis. 2. Sepsis. 3. Status post appendectomy. PLAN: Discharge home today with home health, with IV antibiotics and Xarelto. Job ID: [id number]
[2018-12-26 10:51] LABS: Protein C Activity 90 % (78-152)
[2018-12-26 11:29] LABS: HEX PHOS LA Tube 1 78.4 SEC; HEX PHOS LA Tube 2 66.3 SEC; Hexagonal Phospholipid Neut 12.1 SEC (0-8.0)
--- NOTE | 2018-12-26 11:33 | DIS ---
DATE OF ADMISSION: 12/20/2018 DATE OF DISCHARGE: 12/26/2018 DISCHARGE DIAGNOSES: 1. Portal vein thrombosis. 2. Sepsis. 3. Status post appendectomy. ADMITTING PHYSICIAN: Xavier Cho MD CONSULTING PHYSICIANS: 1. Dr. Lind. 2. Dr. Love. 3. Dr. Kinney. 4. Dr. Bethea. HOSPITAL SUMMARY: The patient is a 23-year-old male who recently underwent appendectomy and feeling generalized malaise for approximately 10 days post surgery. He was seen and evaluated in my office and felt like his condition required to make sure he was admitted to the emergency room. Once he is in emergency room, he was found to have elevated white count. He underwent CT angiogram of the chest, which did reveal multiple liver lesions consistent with possible MARY profile, which is embolic phenomenon to the liver of unknown etiology thought to have represent his first episode of sepsis and found to be febrile. Blood cultures were obtained. He was started on IV antibiotics. Further CT scan of the abdomen next day revealed thrombosis of his portal vein. Consultation obtained from Dr. Kinney and Dr. Love. He eventually was continued on IV antibiotics. The patient did respond well. Echocardiogram was done, which showed no evidence of vegetation. He remained afebrile throughout his hospitalization. Dr. Bethea was consulted for possible long-term antibiotic use recommendations. By 12/26/2018, the patient is doing well. He will be placed on Xarelto 15 mg b.i.d. as well as continue on IV antibiotics. He was felt he was safe to go home. He had a PICC line placed. He was discharged on 12/26/2018. MEDICATIONS: Included; 1. Tylenol as needed for pain. 2. Calcium carbonate. 3. Robitussin. 4. Meropenem 1 g IV piggyback q.8 hours. 5. Xarelto 15 mg b.i.d., which will be converted to 20 mg daily on day 7, day 8. He will be taken back home to [place] under home health care there to recuperate with his parents. He will be transferred back to [facility]. He will follow up with myself as well as Dr. Lind. Further treatment recommendation made at that time. The patient will be remaining out of school at this time. We will provide a letter documenting this. Job ID: [id number]
[2018-12-26 11:47] LABS: PT - Undiluted 14.7 SEC (12.0-14.7); PTT - Undiluted 40.7 SEC (22.9-36.1); PTT 1:1 37C/90 MIN Incubation 43.5 SEC; PTT 1:1 Mix 36.3 SEC
[2018-12-26 15:31] VITALS: BP 112/75; TEMP 98.1
[2018-12-28 17:11] LABS: Activated Protein C Resistance 2.4 ratio (.)
== END 2018-12-26 16:15 | disposition home health service (06) | DRG 856 ==
LOC: SCSER 13:08 → IMCU/EMU 21:43 → SURG A 12-22 17:48
PROVIDERS: ADMIT Family Medicine; ATTEND Family Medicine
PROC: 0J980ZZ Drainage of Abdomen Subcutaneous Tissue and Fascia, Open Approach (ICD-10-PCS; principal; 2018-12-20)
PROC: 02HV33Z Insertion of Infusion Device into Superior Vena Cava, Percutaneous Approach (ICD-10-PCS; 2018-12-20)
DX: T81.40XA Infection following a procedure, unspecified, initial encounter (principal); A41.9 Sepsis, unspecified organism; I82.0 Budd-Chiari syndrome; I81 Portal vein thrombosis; K35.32 Acute appendicitis with perforation, localized peritonitis, and gangrene, without abscess; K35.33 Acute appendicitis with perforation, localized peritonitis, and gangrene, with abscess; K52.1 Toxic gastroenteritis and colitis; A04.72 Enterocolitis due to Clostridium difficile, not specified as recurrent; I80.9 Phlebitis and thrombophlebitis of unspecified site; E87.6 Hypokalemia
CPT/HCPCS: 36415; 36569; 71275; 74177; 80053; 80202; 80500; 81003; 81240; 81241; 82550; 83090; 83605; 83690; 85007; 85025; 85027; 85240; 85300; 85303; 85305; 85307; 85379; 85598; 85610; 85611; 85670; 85730; 85732; 86147; 86308; 87040; 87070; 87205; 87324; 87449; 87493; 87804; 93306; 93970; 96361; 96365; 96375; C1751; J0131; J1644; J1650; J2001; J2185; J2405; J2543; J3370; J7050; Q9966; Q9967

== ENCOUNTER 2019-01-24 07:35 | Outpatient (CLI) | payer OTHER ==
--- NOTE | 2019-01-24 08:59 | CT ---
FPre and postcontrast enhanced CT images abdomen. HISTORY: Patient with previous history of portal vein thrombosis. Comparison made to previous exam from 12/21/2018. Pre and postcontrast enhanced CT images of the abdomen demonstrate the lung bases to be unremarkable. No evidence of free intraperitoneal air or fluid seen. The hepatic parenchyma continues to have a geographic appearing heterogeneous enhancement compatible with a previous vein thrombosis. The filling defect within the portal veins has improved although a s mall area of filling defect remains within the posterior right hepatic lobe segment (segment 6). No evidence of ascites seen. No evidence of intrahepatic biliary dilatation seen. IMPRESSION: Resolving portal vein thrombus.
[2019-01-24] MEDS ORDERED: Iopamidol 370 76% 100 ML VIAL ONE (09:00)
== END 2019-01-24 07:36 | disposition home or self-care (01) ==
LOC: SCSCT 07:35
PROVIDERS: ATTEND Family Medicine
DX: I82.0 Budd-Chiari syndrome (principal); K75.0 Abscess of liver; I81 Portal vein thrombosis
CPT/HCPCS: 74160; Q9967

== ENCOUNTER 2019-03-01 10:06 | Outpatient (CLI) | payer OTHER ==
[~2019-03-01 10:06] MED LIST changes: -Heparin 1,000 UNITS/ML VIAL ONE
--- NOTE | 2019-03-01 12:24 | CT ---
CT ABDOMEN WITH IV CONTRAST: 03/01/2019 PROVIDED CLINICAL HISTORY: Portal vein thrombosis. COMPARISON: CT examinations, dated 12/15/2018, 12/21/2018, and 01/24/2019. FINDINGS: There has been interval resolution of the geographic differential attenuation involving the liver. T here is no residual thrombus identified within the main right portal vein. There is nonopacification of the portal vein branch to hepatic segment V. The spleen, pancreas, kidneys, and adrenal glands demonstrate no significant abnormality. There is n o bowel dilatation, inflammatory fat stranding, free fluid, or free air apparent. IMPRESSION: Interval resolution of thrombus within the main right portal vein. There continues to be occlusion o f the segmental portal vein to hepatic segment V. POS: OFF
== END 2019-03-01 10:07 | disposition home or self-care (01) ==
LOC: SCSCT 10:06
PROVIDERS: ATTEND Family Medicine
DX: I82.0 Budd-Chiari syndrome (principal); I81 Portal vein thrombosis
CPT/HCPCS: 74160; Q9967